=== PATIENT | male | born 1990 | race Caucasian/White ===

== ENCOUNTER → 2018-02-23 | Outpatient (CLI) | payer OTHER ==
--- NOTE | 2018-02-23 20:11 | RAD ---
Scrotal ultrasound 02/23/2018 CLINICAL HISTORY: Right scrotal pain and swelling for one week. TECHNIQUE: Using a combination of real-time ultrasound imaging and color-flow and pulse Doppler imaging techniques, duplex evaluation of the scrotal sac and its contents was performed. Multiple images were obtained. FINDINGS: The left testicle is not visualized consistent with the patient's history of a left orchiectomy. The right testicle is enlarged. It measures 6.6 x 5.3 x 4.6 cm in longitudinal, transverse, and AP dimensions. A heterogeneous but predominantly hypoechoic mass is seen throughout the majority of the right testicle. This measures 5.3 cm in greatest diameter. 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 The right epididymal head is within normal limits. There is a minimal right hydrocele. No varicocele is seen. A 5 mm calcification is seen within the superior right testicle. IMPRESSION: 1. Post left orchiectomy. 2. 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 Electronically signed by: Partha Pardo MD (02/23/2018 8:07 PM) [facility]
== END | disposition home or self-care (01) ==
LOC: US 18:44
PROVIDERS: ATTEND Preventive Medicine Occupational Medicine
DX: N50.811 Right testicular pain (principal)
CPT/HCPCS: 76870